=== PATIENT | male | born 1960 | race Two or more races ===

== ENCOUNTER 2024-05-02 14:38 | Emergency (ER) | payer OTHER, BC ==
[~2024-05-02] VITALS: Ht 188 cm; Wt 90.7 kg
[2024-05-02] MEDS ORDERED: NEXIUM40 M1 PO (14:43)
[2024-05-02] MEDS ORDERED: DICYCLOMIN10 MG/5 M1 PO (14:45)
[2024-05-02] MEDS ORDERED: SERTRALINE20 MG/1 ML PO (14:46)
[2024-05-02] MEDS ORDERED: LOSARTAN POTASS25 MG PO (14:48)
[2024-05-02] MEDS ORDERED: SILDENAFIL CITR50 MG PO (14:48)
[2024-05-02] MEDS ORDERED: GUAIFENESIN 200 MG/10 ML BLIST.PACK PO STA (18:50)
[2024-05-02] MEDS ORDERED: GUAIFENESIN/DEXTROMETHORPHAN 10ML BLIST.PACK PO ONE (18:59)
[2024-05-02] MEDS ORDERED: BUDESONIDE 0.5 MG/2 ML AMPUL.NEB IH SCH (19:00)
[2024-05-02] MEDS ORDERED: LEVALBUTEROL HCL 1.25 MG/3 ML SOLUTION IH SCH (19:00)
[2024-05-02 19:10] LABS: HEMATOCRIT 44.4 % (39.0-48.0); HEMOGLOBIN 14.7 g/dL (13-16.00); MEAN CORPUSCULAR HEMOGLOBIN 28.5 pg (27.00-32.0); MEAN CORPUSCULAR HGB CONC 33.2 g/dl (32.0-36.0); PLATELET COUNT 206 K/uL (150-450); RED BLOOD COUNT 5.17 M/uL (4.00-6.00); RED CELL DISTRIBUTION WIDTH 13.6 % (11.5-14.5)
[2024-05-02] MEDS ORDERED: BUDESONIDE 0.5 MG/2 ML AMPUL.NEB IH ONE (19:15)
[2024-05-02] MEDS ORDERED: LEVALBUTEROL HCL 1.25 MG/3 ML SOLUTION IH ONE (19:15)
[2024-05-02 19:30] LABS: CALCIUM 9.4 mg/dL (8.5-10.1); CREATININE SERUM 0.83 mg/dL (0.70-1.30); GFR 92.98; POTASSIUM 4.16 mEq/L (3.5-5.1)
[2024-05-02] MEDS ORDERED: METHYLPREDNISOLONE SOD SUCC 125 MG VIAL IM STA (20:43)
[2024-05-02] MEDS ORDERED: CEFTRIAXONE SODIUM 1,000 MG VIAL IM STA (20:44)
[2024-05-02] MEDS ORDERED: METHYLPREDNISOLONE SOD SUCC 125 MG VIAL ONE (20:48)
[2024-05-02] MEDS ORDERED: CEFTRIAXONE SODIUM 1,000 MG VIAL ONE (20:48)
== END 2024-05-02 20:56 | disposition home or self-care (01) ==
LOC: ER 14:40
PROVIDERS: General Practice
DX: R05.9 Cough, unspecified (principal); Z20.822 Contact with and (suspected) exposure to COVID-19; Z88.2 Allergy status to sulfonamides; Z88.5 Allergy status to narcotic agent
CPT/HCPCS: 36415; 71046; 94640; 96372; 99283; J0696; J3490